=== PATIENT | male | born 1975 | race Caucasian/White ===

== ENCOUNTER 2020-01-31 20:01 | Emergency (ER) | payer OTHER ==
[~2020-01-31] VITALS: Ht 180.3 cm; Wt 104.3 kg
[~2020-01-31 20:01] MED LIST: ACYC200 PO; AMOCLA875 PO; CRUTCH2 XX; CYCL10 PO; HYDR1TAB94 PO; IBUP800 PO; NAPR500 PO; Omeprazole20 M1 PO
[2020-01-31] MEDS ORDERED: NAPR500 PO (21:25)
[2020-01-31] MEDS ORDERED: Cleocin HCl300 MG PO (21:25)
== END 2020-01-31 21:35 | disposition home or self-care (01) ==
LOC: ER 20:01
DX: L02.413 Cutaneous abscess of right upper limb (principal); F19.10 Other psychoactive substance abuse, uncomplicated; K21.9 Gastro-esophageal reflux disease without esophagitis; Z79.899 Other long term (current) drug therapy
CPT/HCPCS: 10060; 99283-25

== ENCOUNTER 2020-04-17 10:48 | Emergency (ER) | payer OTHER ==
[~2020-04-17] VITALS: Ht 180.3 cm; Wt 108.9 kg
[~2020-04-17 10:48] MED LIST changes: +Cleocin HCl300 MG PO
[2020-04-17] MEDS ORDERED: OMEP20ER (11:36)
[2020-04-17 12:38] LABS: BASOPHILS ABSOLUTE AUTO 0.07 K/mm3 (0.00-0.23); BASOPHILS PERCENT AUTO 1 % (0-2); EOSINOPHILS ABSOLUTE AUTO 0.13 K/mm3 (0.00-0.68); EOSINOPHILS PERCENT AUTO 1 % (0-6); Hematocrit 47.5 % (37.0-53.0); Hemoglobin 15.6 g/dL (13.5-17.5); IMMATURE GRAN ABSOLUTE AUTO 0.03 K/mm3 (0.00-0.10); IMMATURE GRAN PERCENT AUTO 0 % (0-1); LYMPHOCYTES ABSOLUTE AUTO 2.45 K/mm3 (0.84-5.20); LYMPHOCYTES PERCENT AUTO 27 % (21-46); MONOCYTES ABSOLUTE AUTO 0.73 K/mm3 (0.16-1.47); MONOCYTES PERCENT AUTO 8 % (4-13); Mean Corpuscular HGB 30.1 pg (26.0-34.0); Mean Corpuscular HGB Conc 32.8 g/dL (31.5-36.5); Mean Corpuscular Volume 92 fL (80-100); Mean Platelet Volume 9.4 fL (9.1-12.4); NEUTROPHILS ABSOLUTE AUTO 5.83 K/mm3 (1.96-9.15); NEUTROPHILS PERCENT AUTO 63 % (41-73); Platelet Count 239 K/mm3 (150-400); RDW Coefficient Variation 12.7 % (11.7-14.2); RDW Standard Deviation 43.3 fL (35.1-46.3); Red Blood Cell Count 5.18 M/mm3 (4.30-5.90); White Blood Cell Count 9.24 K/mm3 (4.00-11.30)
[2020-04-17 12:58] LABS: Alanine Aminotransfer (ALT/SGP 28 U/L (12-78); Albumin/Globulin Ratio 0.7 (0.8-1.8); Alk Phos 86 U/L (50-136); Anion Gap 6 mmol/L (6-16); Aspartate Aminotrans (AST/SGOT 14 U/L (12-37); Bilirubin, Total 0.3 mg/dL (0.1-1.0); Blood Urea Nitrogen 10 mg/dL (8-24); Bun/Creatinine Ratio 13.7 (12.0-20.0); CO2, Blood 27 mmol/L (21-32); Calcium, Blood 8.7 mg/dL (8.5-10.1); Chloride, Blood 106 mmol/L (98-108); Creatinine, Blood 0.73 mg/dL (0.60-1.20); Globulin, Blood 4.4 g/dL (2.2-4.0); Glomerular Filtration Rate >60 (60-); Glucose, Blood 108 mg/dL (70-99); Potassium, Blood 3.9 mmol/L (3.5-5.5); Sodium, Blood 139 mmol/L (136-145); Total Protein, Blood 7.4 g/dL (6.4-8.2)
[2020-04-17] MEDS ORDERED: CEPH500 PO (13:32)
[2020-04-17] MEDS ORDERED: SULTRIDS PO (13:32)
== END 2020-04-17 13:37 | disposition home or self-care (01) ==
LOC: ER 10:48
PROVIDERS: Emergency Medicine
DX: L03.115 Cellulitis of right lower limb (principal); K21.9 Gastro-esophageal reflux disease without esophagitis; Z79.899 Other long term (current) drug therapy
CPT/HCPCS: 36415; 80053; 85025; 99283

== ENCOUNTER 2020-11-19 23:42 | Emergency (ER) | payer OTHER ==
[~2020-11-19] VITALS: Ht 180.3 cm; Wt 119.8 kg
[~2020-11-19 23:42] MED LIST changes: +CEPH500 PO; +OMEP20ER; +SULTRIDS PO
[2020-11-20 00:50] LABS: BASOPHILS ABSOLUTE AUTO 0.03 K/mm3 (0.00-0.23); BASOPHILS PERCENT AUTO 1 % (0-2); EOSINOPHILS PERCENT AUTO 0 % (0-6); Hematocrit 47.9 % (37.0-53.0); Hemoglobin 16.4 g/dL (13.5-17.5); IMMATURE GRAN ABSOLUTE AUTO 0.02 K/mm3 (0.00-0.10); IMMATURE GRAN PERCENT AUTO 0 % (0-1); LYMPHOCYTES PERCENT AUTO 23 % (21-46); MONOCYTES ABSOLUTE AUTO 0.39 K/mm3 (0.16-1.47); MONOCYTES PERCENT AUTO 7 % (4-13); Mean Corpuscular HGB 30.3 pg (26.0-34.0); Mean Corpuscular HGB Conc 34.2 g/dL (31.5-36.5); Mean Corpuscular Volume 88 fL (80-100); Mean Platelet Volume 9.8 fL (9.1-12.4); NEUTROPHILS ABSOLUTE AUTO 3.61 K/mm3 (1.96-9.15); NEUTROPHILS PERCENT AUTO 69 % (41-73); Platelet Count 129 K/mm3 (150-400); RDW Coefficient Variation 12.9 % (11.7-14.2); RDW Standard Deviation 41.9 fL (35.1-46.3); Red Blood Cell Count 5.42 M/mm3 (4.30-5.90); White Blood Cell Count 5.25 K/mm3 (4.00-11.30)
[2020-11-20 01:07] LABS: Alanine Aminotransfer (ALT/SGP 45 U/L (12-78); Albumin, Blood 3.2 g/dL (3.4-5.0); Albumin/Globulin Ratio 0.7 (0.8-1.8); Alk Phos 74 U/L (50-136); Anion Gap 5 mmol/L (6-16); Aspartate Aminotrans (AST/SGOT 44 U/L (12-37); Bilirubin, Total 0.4 mg/dL (0.1-1.0); Blood Urea Nitrogen 11 mg/dL (8-24); Bun/Creatinine Ratio 11.8 (12.0-20.0); CO2, Blood 31 mmol/L (21-32); Calcium, Blood 8.4 mg/dL (8.5-10.1); Chloride, Blood 97 mmol/L (98-108); Creatinine, Blood 0.94 mg/dL (0.60-1.20); Globulin, Blood 4.6 g/dL (2.2-4.0); Glomerular Filtration Rate >60 (60-); Glucose, Blood 107 mg/dL (70-99); Potassium, Blood 3.3 mmol/L (3.5-5.5); Sodium, Blood 133 mmol/L (136-145); Total Protein, Blood 7.8 g/dL (6.4-8.2)
[2020-11-20 01:42] LABS: SARS-Cov-2 (COVID-19) PCR, MMC POSITIVE (NEGATIVE)
[2020-11-20] MEDS ORDERED: BENZ100A PO (02:19)
== END 2020-11-20 03:09 | disposition home or self-care (01) ==
LOC: ER 23:42
PROVIDERS: Emergency Medicine
DX: U07.1 COVID-19 (principal); K21.9 Gastro-esophageal reflux disease without esophagitis; Z79.899 Other long term (current) drug therapy
CPT/HCPCS: 36415; 80053; 85025; 99283; A9270; J7030; U0004

== ENCOUNTER 2024-02-07 06:03 | Day surgery (SDC) | payer OTHER ==
[2024-02-07] VITALS (17 sets, daily range): BP systolic 115–156; BP diastolic 71–102
[~2024-02-07] VITALS: Ht 180.3 cm; Wt 119.0 kg
[~2024-02-07 06:03] MED LIST changes: +ATOR20 PO; +BENZ100A PO; +Cymbalta20 MG; +Cymbalta20 MG PO; +Flurbiprofen100 MG PO; +GABA300 PO; +IBUP800; +MELO7.5 PO; +OMEP20ER PO; +OMEPRAZOLE20 MG PO
[2024-02-07] MEDS ORDERED: CeFAZolin Sodium 2,000 MG in NS 100 ML IV SCH ×2 (06:20→16:00)
[2024-02-07] MEDS ORDERED: Acetaminophen 500 MG Tab PO SCH ×2 (06:20→08:00)
[2024-02-07] MEDS ORDERED: Lactated Ringer's 1,000 ML IV SCH ×2 (06:20→07:30)
[2024-02-07] MEDS ORDERED: OxyCODONE HCL 10 MG TABCR PO SCH (06:20)
[2024-02-07] MEDS ORDERED: Chlorhexidine Mouth Care 15 ML UDC MT SCH (06:20)
[2024-02-07] MEDS ORDERED: Ropivacaine 0.5% HCl/Pf 123.125 MG,EPINEPHrine HCL 0.25 MG,Ketorolac Tromethamine 15 MG... INFIL SCH (06:20)
[2024-02-07] MEDS ORDERED: Tranexamic Acid 100 ML IV SCH (06:32)
[2024-02-07] MEDS ORDERED: propofoL 20 ML IV ONE (06:32)
[2024-02-07] MEDS ORDERED: Ketorolac Tromethamine 30mg Vial ONE (06:32)
[2024-02-07] MEDS ORDERED: Dexamethasone Sod Phos 10 MG/ML 1ML VIAL ONE (06:32)
[2024-02-07] MEDS ORDERED: Ondansetron HCl 2 MG / ML 2ML Vial ONE (06:32)
[2024-02-07] MEDS ORDERED: propofoL 100 ML IV ONE (06:38)
[2024-02-07] MEDS ORDERED: Bupivacaine 0.5% Inj 10 ML Vial ONE (06:38)
[2024-02-07] MEDS ORDERED: FentaNYL Citrate 50 MCG/ML 2 ML Injection ONE ×2 (07:14→10:21)
[2024-02-07] MEDS ORDERED: propofoL 50 ML IV ONE (07:22)
[2024-02-07] MEDS ORDERED: HYDROmorphone HCl/Pf 1MG SYR IV PRN (07:25)
[2024-02-07] MEDS ORDERED: OxyCODONE HCL 5 MG TAB PO PRN ×2 (07:25)
[2024-02-07] MEDS ORDERED: Prochlorperazine Edisylate 10 mg Vial IV PRN (07:25)
[2024-02-07] MEDS ORDERED: Metoclopramide HCl 5MG / ML 2ML Vial IV PRN (07:30)
[2024-02-07] MEDS ORDERED: Bisacodyl 10 MG Supp PR PRN (07:30)
[2024-02-07] MEDS ORDERED: Ondansetron HCl 2 MG / ML 2ML Vial IV PRN (07:30)
[2024-02-07] MEDS ORDERED: Magnesium Hydroxide Conc 10 ML UDC PO PRN (07:30)
[2024-02-07] MEDS ORDERED: FLU VACC TS2024-25(6MOS UP)/PF 45 MCG/0.5 ML SYRINGE IM SCH (07:30)
[2024-02-07] MEDS ORDERED: DiphenhydrAMINE HCL 25 MG Cap PO PRN (07:35)
[2024-02-07] MEDS ORDERED: Promethazine HCl 25 MG Tab PO PRN (07:35)
[2024-02-07] MEDS ORDERED: Tranexamic Acid 1,000 MG in NS 100 ML IV SCH (07:40)
[2024-02-07] MEDS ORDERED: Phenylephrine HCl 100 MCG/ML-NS 10MLSYR (1MG/10ML) ONE ×2 (08:10→08:36)
[2024-02-07] MEDS ORDERED: Vasopressin 20 UNITS/ML 1ML Vial ONE (08:10)
[2024-02-07] MEDS ORDERED: ePHEDrine Sulfate 50 MG/ML 1ML Injection ONE (08:22)
--- NOTE | 2024-02-07 08:31 | NUR ---
02/07/24 0831 Zina Wray SPINAL BLOCK COMPLETED BY UPON ENTRY TO OR. PATIENT TOLERATED WELL.
[2024-02-07] MEDS ORDERED: Docusate Sodium 100 MG Cap PO SCH (09:00)
[2024-02-07] MEDS ORDERED: Midazolam HCl 1MG / ML 2ML Vial ONE (09:34)
--- NOTE | 2024-02-07 11:30 | NUR ---
ARRIVAL NOTE 1110: PT ARRIVES FROM PACU. A/OX4. PAIN 03/24. NO N/V. R TKNA. SKIN GLUE AND CLEAR DRESSING OVER TOP. C/D/I. PT HAS NO COMPLAINTS. GIVEN WATER AND SNACKS. PT ORIENTED TO ROOM. SENSATION AND MOVEMENT IN FEET. CALL LIGHT IN REACH.
[2024-02-07] MEDS ORDERED: Ketorolac Tromethamine 15mg Vial IV SCH (12:00)
--- NOTE | 2024-02-07 17:32 | NUR ---
SHIFT SUMMARY PT POD0 RIGHT SALVADOR. PT A/OX4. ALE PO INTAKE WELL. ADEQUATE PAIN CONTROL. PT HAS BEEN UP AMBULATING, VOIDED X2. WORKED WITH PHYSICAL THERAPY TODAY AND HAS BEEN DOING HIS EXERCISES IN CHAIR Q30MIN. PT TO D/C HOME TOMORROW AFTER CLEARING THERAPY. [place] C/D/I.
[2024-02-08 05:33] LABS: BASOPHILS ABSOLUTE AUTO 0.03 K/mm3 (0.00-0.23); BASOPHILS PERCENT AUTO 0 % (0-2); EOSINOPHILS PERCENT AUTO 0 % (0-6); Hematocrit 41.7 % (37.0-53.0); Hemoglobin 13.9 g/dL (13.5-17.5); IMMATURE GRAN ABSOLUTE AUTO 0.09 K/mm3 (0.00-0.10); IMMATURE GRAN PERCENT AUTO 1 % (0-1); LYMPHOCYTES ABSOLUTE AUTO 1.38 K/mm3 (0.84-5.20); LYMPHOCYTES PERCENT AUTO 7 % (21-46); MONOCYTES ABSOLUTE AUTO 1.14 K/mm3 (0.16-1.47); MONOCYTES PERCENT AUTO 6 % (4-13); Mean Corpuscular HGB 30.2 pg (26.0-34.0); Mean Corpuscular HGB Conc 33.3 g/dL (31.5-36.5); Mean Corpuscular Volume 91 fL (80-100); Mean Platelet Volume 9.3 fL (9.1-12.4); NEUTROPHILS ABSOLUTE AUTO 16.54 K/mm3 (1.96-9.15); NEUTROPHILS PERCENT AUTO 86 % (41-73); Platelet Count 273 K/mm3 (150-400); RDW Coefficient Variation 12.7 % (11.7-14.2); RDW Standard Deviation 41.6 fL (35.1-46.3); Red Blood Cell Count 4.61 M/mm3 (4.30-5.90); White Blood Cell Count 19.18 K/mm3 (4.00-11.30)
[2024-02-08 05:46] VITALS: BP 125/86
[2024-02-08 05:59] LABS: Magnesium, Blood 2.1 mg/dL (1.6-2.4)
[2024-02-08 06:00] LABS: Bun/Creatinine Ratio 22.2 (12.0-20.0); Calcium, Blood 8.9 mg/dL (8.5-10.1); Creatinine, Blood 0.72 mg/dL (0.60-1.20); Potassium, Blood 4.5 mmol/L (3.5-5.5)
--- NOTE | 2024-02-08 06:07 | NUR ---
SHIFT SUMMARY POD 1 R SALVADOR. NO ACUTE CHANGES OVERNIGHT. VSS. TOLERATING ORALS. VOIDING IND. AMBULATES USING FWW c GB & SBA. PRINEO DRESSING C/D/I. PT REPORTS PAIN TOLERABLE, POLAR PACK IN USE. ANTICIPATED DISCHARGE LATER TODAY. PT RESTING IN CHAIR, REQUIRES CLOTHING FROM HOME TO GET DRESSED FOR THE DAY. CALL LIGHT IN REACH, WILL REPORT TO DAY RN.
[2024-02-08 07:01] VITALS: BP 150/83
[2024-02-08] MEDS ORDERED: ACET500 PO (07:52)
[2024-02-08] MEDS ORDERED: OXAYDO5 M2 PO (07:53)
[2024-02-08] MEDS ORDERED: ASPI81CH PO (07:53)
[2024-02-08] MEDS ORDERED: Aspirin 81 MG Chew PO SCH (09:00)
[2024-02-08 09:50] VITALS: BP 157/89
--- NOTE | 2024-02-08 10:50 | NUR ---
DISCHARGE PT PROVIDED WITH WRITTEN AND VERBAL DISCHARGE INSTRUCTIONS, PT REPORTED UNDERSTANDING. PAIN MANAGED AT TIME OF DISCHARGE. R HIP SITE WNL, CLEAN AQUACEL DRESSING PROVIDED, PT EDUCATED ABOUT INCISION CARE AND DRESSING USE. PT CLEARED THERAPY, ABLE TO VOID, TOLERATING PO AND VSS AT TIME OF DISCHARGE. PT ASSISTED OUT IN W/C AT APPROXIMATELY 1010.
== END 2024-02-08 10:14 | disposition home or self-care (01) ==
LOC: ORSCMMR 06:03 → ORD 07:30 → ORSCMMR 07:30 → SURS 11:01 → ORSCMMR 02-08 10:14
PROVIDERS: Orthopaedic Surgery
PROC: 0SR90JA Replacement of Right Hip Joint with Synthetic Substitute, Uncemented, Open Approach (ICD-10-PCS; principal; 2024-02-07 07:30)
DX: M16.11 Unilateral primary osteoarthritis, right hip (principal); I10 Essential (primary) hypertension; K21.9 Gastro-esophageal reflux disease without esophagitis; Z86.19 Personal history of other infectious and parasitic diseases; F10.21 Alcohol dependence, in remission; F15.21 Other stimulant dependence, in remission; E66.9 Obesity, unspecified; Z68.36 Body mass index [BMI] 36.0-36.9, adult; Z79.899 Other long term (current) drug therapy; Z87.891 Personal history of nicotine dependence
CPT/HCPCS: 36415; 72170; 80048; 83735; 85025; 97110; 97116; 97162; A9270; C1713; C1776; J0171; J0690; J0735; J1100; J1885; J2250; J2371; J2405; J2704; J2795; J3010; J7120

== ENCOUNTER → 2024-09-30 | Outpatient (CLI) | payer OTHER ==
[~2024-09-30] MED LIST changes: +ACET500 PO; +ASPI81CH PO; +OXAYDO5 M2 PO
[2024-09-30 18:44] LABS: BASOPHILS ABSOLUTE AUTO 0.06 K/mm3 (0.00-0.23); BASOPHILS PERCENT AUTO 1 % (0-2); EOSINOPHILS ABSOLUTE AUTO 0.21 K/mm3 (0.00-0.68); EOSINOPHILS PERCENT AUTO 2 % (0-6); Hematocrit 39.5 % (37.0-53.0); Hemoglobin 13.3 g/dL (13.5-17.5); IMMATURE GRAN ABSOLUTE AUTO 0.02 K/mm3 (0.00-0.10); IMMATURE GRAN PERCENT AUTO 0 % (0-1); LYMPHOCYTES ABSOLUTE AUTO 1.87 K/mm3 (0.84-5.20); LYMPHOCYTES PERCENT AUTO 19 % (21-46); MONOCYTES ABSOLUTE AUTO 0.87 K/mm3 (0.16-1.47); MONOCYTES PERCENT AUTO 9 % (4-13); Mean Corpuscular HGB Conc 33.7 g/dL (31.5-36.5); Mean Corpuscular Volume 86 fL (80-100); NEUTROPHILS ABSOLUTE AUTO 6.64 K/mm3 (1.96-9.15); NEUTROPHILS PERCENT AUTO 69 % (41-73); NRBC ABSOLUTE 0.00 K/mm3 (0.00-0.02); NRBC Auto 0.0 /100 WBC (0.0-0.2); Platelet Count 276 K/mm3 (150-400); RDW Coefficient Variation 13.1 % (11.7-14.2); RDW Standard Deviation 40.8 fL (35.1-46.3)
[2024-09-30 19:33] LABS: Alanine Aminotransfer (ALT/SGP 21.0 U/L (12-78); Albumin, Blood 3.1 g/dL (3.4-5.0); Albumin/Globulin Ratio 0.7 (0.8-1.8); Anion Gap 7.0 mmol/L (3-11); Aspartate Aminotrans (AST/SGOT 17.0 U/L (12-37); Bilirubin, Total 0.6 mg/dL (0.1-1.0); Blood Urea Nitrogen 10.0 mg/dL (8-24); C-REACTIVE PROTEIN, EXT RANGE 2.28 mg/dL (0.000-0.300); CO2, Blood 32.0 mmol/L (21-32); Calcium, Blood 9.1 mg/dL (8.5-10.1); Chloride, Blood 98.0 mmol/L (98-108); Creatinine, Blood 0.81 mg/dL (0.60-1.20); Globulin, Blood 4.5 g/dL (2.2-4.0); Glucose, Blood 80.0 mg/dL (70-99); Potassium, Blood 3.1 mmol/L (3.5-5.5); Sodium, Blood 134.0 mmol/L (136-145); Total Protein, Blood 7.6 g/dL (6.4-8.2)
== END ==
LOC: LAB SHORT 18:03 → LAB 18:03
PROVIDERS: Family Medicine
DX: R60.0 Localized edema (principal); I77.6 Arteritis, unspecified
CPT/HCPCS: 80053; 85025; 85651; 86140

== ENCOUNTER 2025-02-06 01:35 | Day surgery (SDC) | payer OTHER ==
[~2025-02-06 01:35] MED LIST changes: +B-1100 M1 PO; +ELIQUIS5 M2 PO; +FOLI1 PO; +FURO20 PO; +OLME20 PO; +POTCHL20ER PO
[2025-02-06] MEDS ORDERED: Lidocaine HCl 4% Cream 5 GM ONE ×2 (12:20→13:11)
== END 2025-02-06 22:00 | disposition home or self-care (01) ==
LOC: WOUND 01:35
DX: E11.622 Type 2 diabetes mellitus with other skin ulcer (principal); L97.312 Non-pressure chronic ulcer of right ankle with fat layer exposed; I87.2 Venous insufficiency (chronic) (peripheral); I10 Essential (primary) hypertension; K21.9 Gastro-esophageal reflux disease without esophagitis; G60.8 Other hereditary and idiopathic neuropathies; F17.200 Nicotine dependence, unspecified, uncomplicated
CPT/HCPCS: A6213; A9270; G0463

== ENCOUNTER 2025-02-16 03:14 | Day surgery (SDC) | payer OTHER ==
[2025-02-16] MEDS ORDERED: Lidocaine HCl 4% Cream 5 GM ONE (13:36)
== END 2025-02-16 23:00 | disposition home or self-care (01) ==
LOC: WOUND 03:14
DX: E11.622 Type 2 diabetes mellitus with other skin ulcer (principal); L97.312 Non-pressure chronic ulcer of right ankle with fat layer exposed; I87.2 Venous insufficiency (chronic) (peripheral); I10 Essential (primary) hypertension
CPT/HCPCS: A6213; A9270; G0463

== ENCOUNTER 2025-02-23 06:41 | Day surgery (SDC) | payer OTHER ==
[2025-02-23] MEDS ORDERED: Lidocaine HCl 4% Cream 5 GM ONE (09:08)
== END 2025-02-23 23:00 | disposition home or self-care (01) ==
LOC: WOUND 06:41
DX: E11.622 Type 2 diabetes mellitus with other skin ulcer (principal); L97.312 Non-pressure chronic ulcer of right ankle with fat layer exposed; I87.2 Venous insufficiency (chronic) (peripheral); I10 Essential (primary) hypertension
CPT/HCPCS: A6196; A6213; A9270